=== PATIENT | male | born 1955 | race Caucasian/White ===

== ENCOUNTER 2016-12-02 07:49 | Outpatient (CLI) ==
[2016-12-02 08:17] LABS: CREATININE 1.53 mg/dL (0.60-1.10)
--- NOTE | 2016-12-02 09:38 | CT ---
EXAM: CT THORAX HISTORY: Left lung nodule. TECHNIQUE: CT thorax with and without intravenous contrast. 5-mm axial sections. Coronal and sagit fang re-formations. 100 mL of Visipaque 320 COMPARISON: None FINDINGS: Normal heart size. Minimal atherosclerotic disease with grossly normal caliber of the thoracic aort a. A few scattered nonspecific, small mediastinal and hilar lymph nodes are present, some which are calcified. There is a 0.47 cm calcified nodule in the posterior upper aspect of the right lower lobe. There is a tiny 0.4 cm nodule in the posteriolateral right apex which is not definitely calcified. Linear s carring is noted in the lateral left lung base. Lungs are otherwise unremarkable. No acute infiltr ates or pleural fluid. The bones reveal no acute abnormality. Chest wall deformity anteriorly on the left may be related t o previous trauma. Incidental note of fatty infiltration of the liver IMPRESSION: 1. There is a tiny right apical nodule which is not definitely calcified although probably postinfl ammatory in nature. There is a benign calcified granuloma in the right lower lobe and some scarring in the lateral left lung base. Lungs are otherwise unremarkable. 2. Fleischner Society Pulmonary Nodule Recommendations: No routine follow-up for low risk patient. Optional 12-month CT follow-up for high-risk patients.
== END 2016-12-02 07:50 | disposition home or self-care (01) ==
LOC: RAD 07:49
PROVIDERS: ATTEND Emergency Medicine
DX: R91.1 Solitary pulmonary nodule (principal)
CPT/HCPCS: 36415; 82565